=== PATIENT | male | born 1985 | race Caucasian/White ===

== ENCOUNTER 2020-04-03 20:00 | Emergency (ER) | payer OTHER ==
[2020-04-03 20:09] VITALS: BP 123/56; PULSE 91; TEMP 98.6; BMI 33.3
[2020-04-03 20:41] LABS: BASO % 0.5 % (0-2.0); EOS % 3.6 % (0-4.5); HEMATOCRIT 40.9 % (35.4-49); HEMOGLOBIN 13.6 GM/dL (11.7-16.9); LYMPH % 46.8 % (8-40); MCH 32.6 pg (25.7-33.7); MCHC 33.4 g/dl (32.0-35.9); MEAN CELL VOLUME 97.5 fl (80-96); MEAN PLT VOLUME 6.1 fl (7.5-11.1); MONO % 5.5 % (3.8-10.2); NEUT % 43.6 % (42.8-82.8); PLATELET COUNT 293 K/MM3 (134-434); RBC 4.19 M/mm3 (4.00-5.60); RDW 14.1 % (11.9-15.9); WHITE BLOOD COUNT 5.9 K/mm3 (4.0-10.0)
[2020-04-03 20:55] LABS: INR 1.06 (0.83-1.09); PROTHROMBIN TIME (PATIENT) 12.8 SEC (9.7-13.0)
[2020-04-03 20:58] LABS: ACTIVATED PTT 36.6 SECONDS (25.2-36.5)
[2020-04-03 21:01] LABS: CHLORIDE 105 mmol/L (98-107); POTASSIUM 4.3 mmol/L (3.5-5.1); SODIUM 141 mmol/L (136-145)
[2020-04-03 21:03] LABS: GLUCOSE,RANDOM 98 mg/dL (74-106)
[2020-04-03 21:04] LABS: ALBUMIN 3.8 g/dl (3.4-5.0); ANION GAP 7 MMOL/L (8-16); BLOOD UREA NITROGEN 13.7 mg/dL (7-18); CO2 29 mmol/L (21-32)
[2020-04-03 21:07] LABS: SGPT/ALT 48 U/L (13-61)
[2020-04-03 21:08] LABS: BILIRUBIN,TOTAL 0.2 mg/dL (0.2-1); SGOT/AST 27 U/L (15-37)
[2020-04-03 21:09] LABS: TOT PROT 7.7 g/dl (6.4-8.2)
[2020-04-03 21:10] LABS: ALK PHOS 76 U/L (45-117)
[2020-04-03 23:14] LABS: URINE BARBITURATES NEGATIVE ng/ml (CUTOFF=200)
[2020-04-03 23:15] LABS: PHENCYCLIDINE,URINE NEGATIVE ng/ml (CUTOFF=25)
[2020-04-03 23:27] LABS: EPI CELLS 2 /uL (0-25.1); HYALINE CASTS 0 /uL (0-3.1); PH,URINE 7.5 (5.0-8.0); URINE APPEARANCE CLOUDY; URINE BACTERIA 2 /uL (0-1359); URINE BILIRUBIN NEGATIVE (NEGATIVE); URINE COLOR YELLOW; URINE GLUCOSE (UA) NEGATIVE (NEGATIVE); URINE KETONE NEGATIVE (NEGATIVE); URINE LEUK ESTERASE NEGATIVE (NEGATIVE); URINE NITRITE NEGATIVE (NEGATIVE); URINE PROTEIN NEGATIVE (NEGATIVE); URINE RBC 38 /uL (0-23.9); URINE UROBILINOGEN 0.2 mg/dL (0.2-1.0); URINE WBC 2 /uL (0-25.8)
[2020-04-03 23:39] LABS: URINE AMPHETAMINES NEGATIVE ng/ml (CUTOFF=500)
[2020-04-03 23:42] LABS: COCAINE, UR POSITIVE ng/ml (CUTOFF=300); METHADONE, UR POSITIVE ng/ml (CUTOFF=300); OPIATES, URI POSITIVE ng/ml (CUTOFF=300); URINE BENZODIAZEPINES POSITIVE ng/ml (CUTOFF=200)
== END 2020-04-04 00:53 | disposition home or self-care (01) ==
LOC: JER 20:00
DX: F10.920 Alcohol use, unspecified with intoxication, uncomplicated (principal)
CPT/HCPCS: 36415; 80053; 80307; 81003; 82550; 82553; 84484; 85025; 85610; 85730; 99284-25

== ENCOUNTER 2020-04-04 14:31 | Inpatient (IN) | payer OTHER ==
[2020-04-04 19:46] VITALS: BMI 32.7
[2020-04-04] MEDS ORDERED: hydrOXYzine PAMOATE 25 MG CAPSULE (FP) PO PRN (19:59)
[2020-04-04] MEDS ORDERED: MENTHOL/PHENOL 1 EACH UD MM PRN (19:59)
[2020-04-04] MEDS ORDERED: NICOTINE POLACRILEX 2 MG GUM BUC PRN (19:59)
[2020-04-04] MEDS ORDERED: ONDANSETRON *ODT* 4 MG TABLET SL PRN (19:59)
[2020-04-04] MEDS ORDERED: MAGNESIUM HYDROX 2400MG/30ML ORAL SUSPENSION 30 ML CUP PO PRN (19:59)
[2020-04-04] MEDS ORDERED: MAGNESIUM CITRATE 300 ML BOTTLE PO PRN (19:59)
[2020-04-04] MEDS ORDERED: ACETAMINOPHEN 325 MG TABLET (FP) PO PRN ×2 (19:59)
[2020-04-04] MEDS ORDERED: BISMUTH SUBSALICYLATE 524 MG/30 ML UD PO PRN (19:59)
[2020-04-04] MEDS ORDERED: MAG HYDROX/AL HYDROX/SIMETH 30 ML UNIT-DOSE CUP PO PRN (19:59)
[2020-04-04] MEDS: THIAMINE HCL 100 MG TABLET (FP) PO SCH (22:36)
[2020-04-04] MEDS: diazePAM 5 MG TABLET PO SCH (22:36)
[2020-04-04] MEDS: BACITRACIN/POLYMYXIN B SULFATE 15 GM TUBE TP SCH (22:59)
[2020-04-05] MEDS: diazePAM 5 MG TABLET PO SCH ×4 (05:21→22:34)
[2020-04-05] MEDS: PRENATAL VITAMINS W/ FOLIC ACID TABLET (FP) PO SCH (10:16)
[2020-04-05] MEDS: diazePAM 5 MG TABLET PO PRN (10:16)
[2020-04-05] MEDS: IBUPROFEN 400 MG TABLET (FP) PO PRN ×2 (10:18→22:36)
[2020-04-05] MEDS: METHOCARBAMOL 500 MG TABLET PO PRN ×2 (10:18→17:07)
[2020-04-05] MEDS: BACITRACIN/POLYMYXIN B SULFATE 15 GM TUBE TP SCH ×2 (10:19→22:34)
[2020-04-05] MEDS: NICOTINE 7 MG/24 HOURS TOPICAL PATCH TD SCH (10:19)
[2020-04-05] MEDS ORDERED: hydrOXYzine PAMOATE 25 MG CAPSULE (FP) PO PRN (10:26)
[2020-04-05 11:15] LABS: HEMATOCRIT 39.7 % (35.4-49); HEMOGLOBIN 13.5 GM/dL (11.7-16.9); MCH 33.1 pg (25.7-33.7); MEAN CELL VOLUME 97.3 fl (80-96); MEAN PLT VOLUME 6.8 fl (7.5-11.1); PLATELET COUNT 269 K/MM3 (134-434); RBC 4.08 M/mm3 (4.00-5.60); RDW 14.3 % (11.9-15.9); WHITE BLOOD COUNT 4.7 K/mm3 (4.0-10.0)
[2020-04-05 11:17] LABS: POTASSIUM 3.6 mmol/L (3.5-5.1)
[2020-04-05 11:25] LABS: ALBUMIN 3.3 g/dl (3.4-5.0); BLOOD UREA NITROGEN 15.8 mg/dL (7-18)
[2020-04-05 11:28] LABS: CREATININE 0.8 mg/dL (0.55-1.3)
[2020-04-05 11:29] LABS: BILIRUBIN,TOTAL 0.3 mg/dL (0.2-1); TOT PROT 6.6 g/dl (6.4-8.2)
[2020-04-05] MEDS: THIAMINE HCL 100 MG TABLET (FP) PO SCH (22:35)
[2020-04-05] MEDS: MELATONIN 5 MG TABLETS PO PRN (22:35)
[2020-04-06] MEDS: diazePAM 5 MG TABLET PO SCH ×3 (05:28→22:13)
[2020-04-06] MEDS: METHOCARBAMOL 500 MG TABLET PO PRN ×3 (05:28→22:15)
[2020-04-06] MEDS: IBUPROFEN 400 MG TABLET (FP) PO PRN ×2 (05:28→22:16)
[2020-04-06] MEDS: BACITRACIN/POLYMYXIN B SULFATE 15 GM TUBE TP SCH ×2 (09:42→22:16)
[2020-04-06] MEDS: PRENATAL VITAMINS W/ FOLIC ACID TABLET (FP) PO SCH (09:47)
[2020-04-06] MEDS: NICOTINE 7 MG/24 HOURS TOPICAL PATCH TD SCH (09:47)
[2020-04-06] MEDS ORDERED: METHADONE HCL 40 MG DISPERSABLE TABLET PO ONE (10:00)
[2020-04-06] MEDS ORDERED: FLU VACCINE (FLULAVAL) PF 60 MCG/0.5 ML SYRINGE 2020-2021 IM ONE (12:00)
[2020-04-06] MEDS: MELATONIN 5 MG TABLETS PO PRN (22:14)
[2020-04-06] MEDS: THIAMINE HCL 100 MG TABLET (FP) PO SCH (22:17)
[2020-04-07] MEDS: METHADONE HCL 40 MG DISPERSABLE TABLET PO SCH (05:15)
[2020-04-07] MEDS: diazePAM 5 MG TABLET PO SCH ×2 (05:16→17:49)
[2020-04-07] MEDS: METHOCARBAMOL 500 MG TABLET PO PRN ×2 (05:16→17:50)
[2020-04-07] MEDS: NICOTINE 7 MG/24 HOURS TOPICAL PATCH TD SCH (10:02)
[2020-04-07] MEDS: PRENATAL VITAMINS W/ FOLIC ACID TABLET (FP) PO SCH (10:04)
[2020-04-07] MEDS: BACITRACIN/POLYMYXIN B SULFATE 15 GM TUBE TP SCH ×2 (10:04→22:20)
[2020-04-07] MEDS: diazePAM 5 MG TABLET PO PRN (13:55)
[2020-04-07] MEDS: MELATONIN 5 MG TABLETS PO PRN (22:18)
[2020-04-07] MEDS: THIAMINE HCL 100 MG TABLET (FP) PO SCH (22:19)
[2020-04-08] MEDS: METHADONE HCL 40 MG DISPERSABLE TABLET PO SCH (05:14)
[2020-04-08] MEDS: METHOCARBAMOL 500 MG TABLET PO PRN (05:14)
[2020-04-08] MEDS ORDERED: diazePAM 5 MG TABLET PO ONE (06:00)
[2020-04-08 09:31] VITALS: BP 136/83; PULSE 70; TEMP 98.2
== END 2020-04-08 09:47 | disposition home or self-care (01) | DRG 773 ==
LOC: YASAS 14:31 → Y3N 21:16
PROVIDERS: ADMIT Allergy & Immunology; ATTEND Allergy & Immunology
PROC: HZ2ZZZZ Detoxification Services for Substance Abuse Treatment (ICD-10-PCS; principal; 2020-04-04)
DX: F10.230 Alcohol dependence with withdrawal, uncomplicated (principal); F10.220 Alcohol dependence with intoxication, uncomplicated; F11.20 Opioid dependence, uncomplicated; F17.213 Nicotine dependence, cigarettes, with withdrawal; F19.24 Other psychoactive substance dependence with psychoactive substance-induced mood disorder
CPT/HCPCS: 36415; 80053; 85027; 86780; C9803; G0008; Q0162; Q2036; U0003

== ENCOUNTER 2020-06-26 18:57 | Inpatient (IN) | payer OTHER ==
[2020-06-27 01:19] VITALS: BMI 34.6
[2020-06-27] MEDS ORDERED: chlordiazePOXIDE HCL 25 MG CAPSULE PO PRN (02:15)
[2020-06-27] MEDS ORDERED: BISMUTH SUBSALICYLATE 524 MG/30 ML UD PO PRN (02:15)
[2020-06-27] MEDS ORDERED: ACETAMINOPHEN 325 MG TABLET (FP) PO PRN ×2 (02:15)
[2020-06-27] MEDS ORDERED: MENTHOL/PHENOL 1 EACH UD MM PRN (02:15)
[2020-06-27] MEDS ORDERED: NICOTINE POLACRILEX 2 MG GUM BUC PRN (02:15)
[2020-06-27] MEDS ORDERED: ONDANSETRON *ODT* 4 MG TABLET SL PRN (02:15)
[2020-06-27] MEDS ORDERED: MAGNESIUM HYDROX 2400MG/30ML ORAL SUSPENSION 30 ML CUP PO PRN (02:15)
[2020-06-27] MEDS ORDERED: MAGNESIUM CITRATE 300 ML BOTTLE PO PRN (02:15)
[2020-06-27] MEDS ORDERED: MAG HYDROX/AL HYDROX/SIMETH 30 ML UNIT-DOSE CUP PO PRN (02:15)
[2020-06-27] MEDS ORDERED: chlordiazePOXIDE HCL 25 MG CAPSULE ONE ×3 (02:53→10:59)
[2020-06-27] MEDS: chlordiazePOXIDE HCL 25 MG CAPSULE PO SCH ×4 (05:45→23:13)
[2020-06-27] MEDS ORDERED: NICOTINE 14 MG/24 HOURS TOPICAL PATCH TD ONE (11:00)
[2020-06-27] MEDS: PRENATAL VITAMINS W/ FOLIC ACID TABLET (FP) PO SCH (11:05)
[2020-06-27] MEDS: NICOTINE 14 MG/24 HOURS TOPICAL PATCH TD SCH (11:05)
[2020-06-27] MEDS: METHADONE HCL 40 MG DISPERSABLE TABLET PO SCH (12:42)
[2020-06-27] MEDS: hydrOXYzine PAMOATE 50 MG CAPSULE (FP) PO PRN ×2 (15:52→23:12)
[2020-06-27] MEDS ORDERED: MELATONIN 5 MG TABLETS PO SCH (22:00)
[2020-06-27] MEDS: MELATONIN 5 MG TABLETS PO SCH (23:13)
[2020-06-27] MEDS: THIAMINE HCL 100 MG TABLET (FP) PO SCH (23:13)
[2020-06-28] MEDS: METHADONE HCL 40 MG DISPERSABLE TABLET PO SCH (05:18)
[2020-06-28] MEDS: IBUPROFEN 400 MG TABLET (FP) PO PRN ×3 (05:19→16:54)
[2020-06-28] MEDS: chlordiazePOXIDE HCL 25 MG CAPSULE PO SCH ×4 (05:19→23:40)
[2020-06-28] MEDS: PRENATAL VITAMINS W/ FOLIC ACID TABLET (FP) PO SCH (10:44)
[2020-06-28] MEDS: NICOTINE 14 MG/24 HOURS TOPICAL PATCH TD SCH (10:44)
[2020-06-28] MEDS: METHOCARBAMOL 500 MG TABLET PO PRN ×2 (10:46→16:54)
[2020-06-28 11:19] LABS: HEMATOCRIT 38.1 % (35.4-49); MCH 34.5 pg (25.7-33.7); MCHC 34.2 g/dl (32.0-35.9); MEAN CELL VOLUME 100.9 fl (80-96); PLATELET COUNT 223 K/MM3 (134-434); RBC 3.77 M/mm3 (4.00-5.60); RDW 15.8 % (11.9-15.9); WHITE BLOOD COUNT 4.3 K/mm3 (4.0-10.0)
[2020-06-28 11:31] LABS: POTASSIUM 4.2 mmol/L (3.5-5.1)
[2020-06-28 11:33] LABS: CALCIUM 8.5 mg/dL (8.5-10.1)
[2020-06-28 11:34] LABS: ALBUMIN 3.5 g/dl (3.4-5.0); BLOOD UREA NITROGEN 17.1 mg/dL (7-18)
[2020-06-28 11:37] LABS: CREATININE 0.9 mg/dL (0.55-1.3)
[2020-06-28 11:39] LABS: BILIRUBIN,TOTAL 0.3 mg/dL (0.2-1); TOT PROT 6.8 g/dl (6.4-8.2)
[2020-06-28] MEDS: hydrOXYzine PAMOATE 50 MG CAPSULE (FP) PO PRN (13:51)
[2020-06-28] MEDS ORDERED: LIDOCAINE VISCOUS 2% ORAL/TOP 20 ML UNIT-DOSE CUP MM PRN (14:17)
[2020-06-28] MEDS: MELATONIN 5 MG TABLETS PO SCH (21:51)
[2020-06-28] MEDS: THIAMINE HCL 100 MG TABLET (FP) PO SCH (21:51)
[2020-06-28] MEDS: CHLORHEXIDINE GLUCONATE 0.12% 15ML CUP MM SCH (21:53)
[2020-06-29] MEDS ORDERED: chlordiazePOXIDE HCL 10 MG CAPSULE PO PRN
[2020-06-29] MEDS: METHADONE HCL 40 MG DISPERSABLE TABLET PO SCH (05:31)
[2020-06-29] MEDS: chlordiazePOXIDE HCL 10 MG CAPSULE PO SCH ×4 (05:31→22:34)
[2020-06-29] MEDS: IBUPROFEN 400 MG TABLET (FP) PO PRN ×3 (05:32→22:34)
[2020-06-29] MEDS: hydrOXYzine PAMOATE 50 MG CAPSULE (FP) PO PRN ×3 (05:32→18:10)
[2020-06-29] MEDS: NICOTINE 14 MG/24 HOURS TOPICAL PATCH TD SCH (10:28)
[2020-06-29] MEDS: PRENATAL VITAMINS W/ FOLIC ACID TABLET (FP) PO SCH (10:29)
[2020-06-29] MEDS: CHLORHEXIDINE GLUCONATE 0.12% 15ML CUP MM SCH ×2 (10:29→22:32)
[2020-06-29] MEDS: MELATONIN 5 MG TABLETS PO SCH (22:32)
[2020-06-29] MEDS: THIAMINE HCL 100 MG TABLET (FP) PO SCH (22:32)
[2020-06-30] MEDS: METHADONE HCL 40 MG DISPERSABLE TABLET PO SCH (05:25)
[2020-06-30] MEDS: chlordiazePOXIDE HCL 10 MG CAPSULE PO SCH ×2 (05:25→17:49)
[2020-06-30] MEDS: hydrOXYzine PAMOATE 50 MG CAPSULE (FP) PO PRN ×2 (05:27→17:49)
[2020-06-30] MEDS: PRENATAL VITAMINS W/ FOLIC ACID TABLET (FP) PO SCH (10:29)
[2020-06-30] MEDS: CHLORHEXIDINE GLUCONATE 0.12% 15ML CUP MM SCH ×2 (10:29→21:28)
[2020-06-30] MEDS: NICOTINE 14 MG/24 HOURS TOPICAL PATCH TD SCH (10:29)
[2020-06-30] MEDS: METHOCARBAMOL 500 MG TABLET PO PRN (10:30)
[2020-06-30] MEDS: MELATONIN 5 MG TABLETS PO SCH (21:26)
[2020-06-30] MEDS: THIAMINE HCL 100 MG TABLET (FP) PO SCH (21:26)
[2020-07-01] MEDS ORDERED: chlordiazePOXIDE HCL 10 MG CAPSULE PO ONE (05:00)
[2020-07-01] MEDS: METHADONE HCL 40 MG DISPERSABLE TABLET PO SCH (05:46)
[2020-07-01 06:36] VITALS: BP 149/87; PULSE 79; TEMP 97.6
[2020-07-01] MEDS: NICOTINE 14 MG/24 HOURS TOPICAL PATCH TD SCH (09:02)
[2020-07-01] MEDS: PRENATAL VITAMINS W/ FOLIC ACID TABLET (FP) PO SCH (09:02)
[2020-07-01] MEDS: CHLORHEXIDINE GLUCONATE 0.12% 15ML CUP MM SCH (09:02)
== END 2020-07-01 09:11 | disposition home or self-care (01) | DRG 773 ==
LOC: YASAS 18:57 → Y6N 06-27 11:50
PROVIDERS: ADMIT Allergy & Immunology; ATTEND Allergy & Immunology
PROC: HZ2ZZZZ Detoxification Services for Substance Abuse Treatment (ICD-10-PCS; principal; 2020-06-27)
DX: F10.230 Alcohol dependence with withdrawal, uncomplicated (principal); F11.20 Opioid dependence, uncomplicated; F14.20 Cocaine dependence, uncomplicated; F12.20 Cannabis dependence, uncomplicated; F17.210 Nicotine dependence, cigarettes, uncomplicated; F19.282 Other psychoactive substance dependence with psychoactive substance-induced sleep disorder; F19.280 Other psychoactive substance dependence with psychoactive substance-induced anxiety disorder; F19.24 Other psychoactive substance dependence with psychoactive substance-induced mood disorder; F32.9 Major depressive disorder, single episode, unspecified; F41.9 Anxiety disorder, unspecified; F90.9 Attention-deficit hyperactivity disorder, unspecified type; G40.509 Epileptic seizures related to external causes, not intractable, without status epilepticus; K08.89 Other specified disorders of teeth and supporting structures
CPT/HCPCS: 36415; 80053; 85027; 86780; 93005; 93010; C9803; U0003

== ENCOUNTER 2021-06-08 13:04 | Inpatient (IN) | payer OTHER ==
[2021-06-08] MEDS ORDERED: diazePAM 5 MG TABLET PO PRN (14:29)
[2021-06-08] MEDS ORDERED: ONDANSETRON *ODT* 4 MG TABLET SL PRN (14:29)
[2021-06-08] MEDS ORDERED: BISMUTH SUBSALICYLATE 262 MG/15 ML BTL PO PRN (14:29)
[2021-06-08] MEDS ORDERED: MAG HYDROX/AL HYDROX/SIMETH 30 ML UNIT-DOSE CUP PO PRN (14:29)
[2021-06-08] MEDS ORDERED: IBUPROFEN 400 MG TABLET (FP) PO PRN (14:29)
[2021-06-08] MEDS ORDERED: MAGNESIUM CITRATE 300 ML BOTTLE PO PRN (14:29)
[2021-06-08] MEDS ORDERED: METHOCARBAMOL 500 MG TABLET PO PRN (14:29)
[2021-06-08] MEDS ORDERED: MAGNESIUM HYDROX 2400MG/30ML ORAL SUSPENSION 30 ML CUP PO PRN (14:29)
[2021-06-08] MEDS ORDERED: MENTHOL/PHENOL 1 EACH UD MM PRN (14:29)
[2021-06-08] MEDS ORDERED: NICOTINE 10 MG CARTRIDGE (INHALER) IH PRN (14:29)
[2021-06-08] MEDS ORDERED: ACETAMINOPHEN 325 MG TABLET (FP) PO PRN ×2 (14:29)
[2021-06-08] MEDS ORDERED: methaDONE HCL 10 MG TABLET PO SCH (14:45)
[2021-06-08 15:01] VITALS: BMI 20.9
[2021-06-08] MEDS ORDERED: diazePAM 5 MG TABLET ONE (15:28)
[2021-06-08] MEDS ORDERED: ONDANSETRON *ODT* 4 MG TABLET ONE (16:57)
[2021-06-08] MEDS ORDERED: diazePAM 5 MG TABLET PO SCH (17:00)
[2021-06-08] MEDS ORDERED: hydrOXYzine PAMOATE 25 MG CAPSULE (FP) PO SCH (18:00)
[2021-06-08 18:13] VITALS: BP 152/107; PULSE 95; TEMP 96.2
[2021-06-08] MEDS ORDERED: THIAMINE HCL 100 MG TABLET (FP) PO SCH (22:00)
[2021-06-08] MEDS ORDERED: cloNIDine HCL 0.1 MG TABLET PO SCH (22:00)
[2021-06-08] MEDS ORDERED: MELATONIN 5 MG TABLETS PO SCH (22:00)
[2021-06-09] MEDS ORDERED: PRENATAL VITAMINS W/ FOLIC ACID TABLET (FP) PO SCH (10:00)
[2021-06-09] MEDS ORDERED: FLU VACC QS2021-22(6MOS UP)/PF 60 MCG/0.5 ML SYRINGE IM ONE (12:00)
[2021-06-10] MEDS ORDERED: diazePAM 5 MG TABLET PO SCH (06:00)
[2021-06-11] MEDS ORDERED: diazePAM 5 MG TABLET PO SCH (06:00)
[2021-06-12] MEDS ORDERED: diazePAM 5 MG TABLET PO ONE (06:00)
== END 2021-06-08 20:51 | disposition left against medical advice (07) | DRG 770 ==
LOC: YASAS 13:04 → Y3N 16:00
PROVIDERS: ADMIT Allergy & Immunology; ATTEND Allergy & Immunology
PROC: HZ2ZZZZ Detoxification Services for Substance Abuse Treatment (ICD-10-PCS; principal; 2021-06-08)
DX: F10.230 Alcohol dependence with withdrawal, uncomplicated (principal); F11.20 Opioid dependence, uncomplicated; F13.20 Sedative, hypnotic or anxiolytic dependence, uncomplicated; F14.20 Cocaine dependence, uncomplicated; F12.10 Cannabis abuse, uncomplicated; F17.210 Nicotine dependence, cigarettes, uncomplicated; F32.A Depression, unspecified; F41.8 Other specified anxiety disorders; F90.9 Attention-deficit hyperactivity disorder, unspecified type; I10 Essential (primary) hypertension
CPT/HCPCS: C9803; Q0162; U0003; U0005